=== PATIENT | male | born 1945 | race Caucasian/White ===

== ENCOUNTER 2019-09-24 11:52 | Outpatient (CLI) | payer MEDICARE, BC, SELFPAY ==
[2019-09-24 12:53] LABS: Hematocrit 51.2 % (42.0-52.0); Hemoglobin 16.6 g/dL (14.0-18.0); Mean Corpuscular HGB Conc 32.4 g/dl (32-36); Mean Corpuscular Hemoglobin 29.9 pg (26-34); Mean Corpuscular Volume 92.1 fl (80-100); Platelet Count Result 197 k/mm3 (150-375); Red Blood Count 5.56 M/mm3 (4.6-6.20); Red Cell Distribution Width 13.2 % (11.5-14.5); White Blood Count 7.4 K/mm3 (4.5-10.0)
[2019-09-24 13:02] LABS: Add Urine Microscopic? YES; Appearance Urine Clear (Clear); Bacteria Urine 2+ /hpf; Bilirubin Urine 2+ (Negative); Blood Urine Negative (Negative); Color Urine Amber (Yellow); Glucose Urine UA Negative (Negative); Ketones Urine Negative (Negative); Leukocyte Esterase Ur Negative LEU/UL (NEGATIVE); Mucus Urine Heavy /lpf; Nitrate Urine Negative (Negative); Protein Urine 2+ mg/dL (Negative); Urobilinogen Urine Negative mg/dL (<2.0); WBC Urine 0-3 /hpf (0-3)
[2019-09-24 13:09] LABS: Specific Grav Ur 1.036 (1.001-1.035)
[2019-09-24 13:23] LABS: Alanine Aminotransferase 31 U/L (4-50); Albumin Level 4.4 g/dL (3.5-5.1); Alkaline Phosphatase 83 U/L (38-126); Aspartate Amino Transferase 29 U/L (17-59); Blood Urea Nitrogen 16 mg/dL (9-20); Calcium 9.3 mg/dL (8.4-10.2); Carbon Dioxide 27 mmol/L (22-30); Chloride 102 mmol/L (98-107); Cholesterol 136 mg/dL (0-200); Estimated Glomerular Filt Rate > 60; Glucose 110 mg/dL (75-110); HDL Direct 33 mg/dL; Potassium 3.7 mmol/L (3.4-5.0); Sodium 140 mmol/L (137-145); Triglycerides 147 mg/dL (<150)
[2019-09-24 13:34] LABS: LDL Cholesterol Direct 82 mg/dL
[2019-09-24 13:51] LABS: Prostate Specific Antigen 1.3 ng/mL (< OR = 4.0)
[2019-09-24 14:31] LABS: Vitamin D 25 Hydroxy 22.3 ng/mL
[2019-09-24 14:36] LABS: Hemoglobin A1C 6.3 % (<5.7)
[2019-09-29 08:58] LABS: Testosterone Free 31.7 pg/mL (30.0-135.0); Testosterone Total 258 ng/dL (250-1100)
== END 2019-09-24 11:53 | disposition home or self-care (01) ==
DX: R73.9 Hyperglycemia, unspecified (principal); Z12.5 Encounter for screening for malignant neoplasm of prostate; E29.1 Testicular hypofunction; E55.9 Vitamin D deficiency, unspecified; E78.5 Hyperlipidemia, unspecified
CPT/HCPCS: 36415; 80053; 80061; 81001; 82306; 83036; 84153; 84402; 84403; 84443; 85027; G0103

== ENCOUNTER 2023-05-23 10:02 | Observation (INO) | payer MEDICARE, SELFPAY ==
[2023-05-23] VITALS (33 sets, daily range): BP systolic 125–161; BP diastolic 75–85; PULSE 75–108; RESP 15–24; TEMP 36.7–37.5; O2SAT 88–99; BMI 31.8
--- NOTE | ~2023-05-23 | XR_ITS ---
Clinical Indication: Shortness of breath AP and lateral views of the chest: Comparison: 12/08/2016 Findings: The lungs are clear, without evidence of focal consolidation or pleural effusion. Cardiome diastinal silhouette is within normal limits, with pacemaker device. Bones and soft tissues are unrem arkable. Impression: Clear lungs. Pacemaker device. Reviewed, dictated and finalized at location . Impression: Clear lungs. Pacemaker device.
--- NOTE | ~2023-05-23 | CT_ITS ---
EXAMINATION: CTA chest PE protocol DATE: 05/23/2023 13:06 INDICATION: Shortness of breath and hypoxia TECHNIQUE: Computed tomography angiography (CTA) of the chest was performed with 100 mL Omnipaque-350 intravenous contrast timed to evaluate the pulmonary arteries. Coronal maximum intensity projection 3D-reconstructions were created by the technologist. The dose-length product (DLP) was 1197.73 mGy-cm . Automated exposure control and iterative reconstruction technique were employed. COMPARISON: 12/09/2016 FINDINGS: The pulmonary arteries are well-opacified. No pulmonary embolism is identified. There is mi ld dependent atelectasis of the lungs. The lungs are free of focal airspace opacities. No pleural eff usion or pneumothorax. There is mild right hilar lymphadenopathy which may be reactive. The heart siz e is normal. There are bridging osteophytes at multiple levels in the spine, consistent with diffuse idiopathic skeletal hyperostosis (DISH). Cholelithiasis is noted. There is mild bilateral gynecomasti a. IMPRESSION: 1. No pulmonary embolism or acute cardiopulmonary abnormality. Reviewed, dictated and finalized at location L.
--- NOTE | 2023-05-23 10:26 | ECG_ITS ---
Measurements Intervals [place] Rate: 89 P: 40 [place]: 159 QRS: 10 QRSD: 92 T: 63 QT: 342 QTc: 417 Interpretive Statements SINUS RHYTHM VENTRICULAR PREMATURE COMPLEXES DELAYED PRECORDIAL R/S TRANSITION MINIMAL Q WAWVES- INFERIOR LEADS BORDERLINE ECG NO PREVIOUS ECG AVAILABLE FOR COMPARISON Electronically Signed On 05-23-2023 10:47:27 CDT by Garcia Osborne D.O.
[2023-05-23 10:43] LABS: Basophils Absolute Auto 0.1 K/mm3 (0.0-0.1); Basophils Percent Auto 0.5 % (0.2-1.2); Eosinophils Absolute Auto 0.1 K/mm3 (0-0.3); Eosinophils Percent Auto 0.9 % (0-4.4); Hematocrit 51.2 % (42.0-52.0); Hemoglobin 16.8 g/dL (14.0-18.0); Immature Granulocyte Absolute 0.02 K/mm3 (0.00-0.031); Immature Granulocyte Percent A 0.2 % (0-0.5); Lymphocytes Absolute Auto 0.95 K/mm3 (0.9-3.2); Lymphocytes Percent Auto 10.2 % (18.3-44.2); Mean Corpuscular HGB Conc 32.8 g/dl (32-36); Mean Corpuscular Hemoglobin 30.4 pg (26-34); Mean Corpuscular Volume 92.6 fl (80-100); Mean Platelet Volume 10.5 fl (7.4-10.4); Monocytes Absolute Auto 0.6 K/mm3 (0.1-0.6); Monocytes Percent Auto 6.1 % (2.6-8.5); Neutrophils Absolute Auto 7.6 K/mm3 (1.3-6.7); Neutrophils Percent Auto 82.1 % (45.5-73.1); Platelet Count Result 192 k/mm3 (150-375); Red Blood Count 5.53 M/mm3 (4.6-6.20); Red Cell Distribution Width 13.2 % (11.5-14.5); White Blood Count 9.3 K/mm3 (4.5-10.0)
--- NOTE | 2023-05-23 10:52 | ED.SOB ---
HPI - SOB/Dyspnea General Chief Complaint: Shortness of Breath/Dyspnea <Haley Larsen PA-C - Last Filed: 05/24/23 09:35> Stated Complaint: SOB x 1 week <MANNY Atkinson Last Filed: 05/24/23 09:35> Time Seen by Provider: 05/23/23 10:44 <MANNY Atkinson Last Filed: 05/24/23 09:35> Source: patient <MANNY Atkinson Last Filed: 05/24/23 09:35> Mode of arrival: EMS <MANNY Atkinson Last Filed: 05/24/23 09:35> Limitations: no limitations <MANNY Atkinson Last Filed: 05/24/23 09:35> History of Present Illness HPI Narrative: This is a 78-year-old male that presents to the emergency department for shortness of breath. Worsening over the last couple of days. Reports associated cough and congestion. Noted he was wheezing. He tried taking an old inhaler that he had with little relief. He does not report any known history of asthma or COPD. He is not a smoker. Does report his cough is productive of bhatt sputum. Denies fever, chest pain, or lower extremity edema. <MANNY Atkinson Last Filed: 05/24/23 09:35> Related Data Home Medications: Home Medications Medication Instructions Recorded Confirmed apixaban 5 mg tablet (Eliquis) 5 mg PO BID 05/23/23 05/23/23 atorvastatin 40 mg tablet 40 mg PO HS 05/23/23 05/23/23 carvedilol 6.25 mg tablet 6.25 mg PO BID 05/23/23 05/23/23 <MANNY Atkinson Last Filed: 05/24/23 09:35> Allergies/Adverse Reactions: Allergies Allergy/AdvReac Type Severity Reaction Status Date / Time No Known Allergies Allergy Verified 05/23/23 10:31 <MANNY Atkinson Last Filed: 05/24/23 09:35> Review of Systems Review of Systems: CONSTITUTIONAL: Denies fever ENT: Reports rhinorrhea, congestion CARDIOVASCULAR: Denies chest pain, or edema. RESPIRATORY: Reports cough and dyspnea. <Haley Larsen PA-C - Last Filed: 05/24/23 09:35> All systems reviewed & are unremarkable except as noted in HPI and below <Haley Larsen PA-C - Last Filed: 05/24/23 09:35> PMFSH Past Medical History Medical History: Medical History (Updated 05/23/23 @ 21:58 by Ama Paz PA-C) Arthritis Chronic anticoagulation Crohn's disease No issues for decades. Hyperlipidemia Hypertension Hypothyroidism As a teenager. Kidney stones Migraine headache Obstructive sleep apnea Paroxysmal atrial fibrillation <Haley Larsen PA-C - Last Filed: 05/24/23 09:35> Surgical History Surgical History: Surgical History History of cardiac radiofrequency ablation History of permanent cardiac pacemaker placement History of sinus surgery <Haley Larsen PA-C - Last Filed: 05/24/23 09:35> Family History Family History: Family History Mother Carcinoma of colon <Haley Larsen PA-C - Last Filed: 05/24/23 09:35> Social History Social History: Social History (Updated 05/23/23 @ 15:37 by Ama Paz PA-C) Social History: Surrogate medical decision maker: Darrell Montoya, son. Code status: Full code. Smoking packs per day: 2 Smoking cigarettes per day: 40.0 Smoking status: Former smoker Additional smoking assessment comments: Quit in 1984. Alcohol intake: current Drinks per week: 1 Substance use: former Lack of Transportation: No Lack of Food: Never True Current Housing: I Have Housing Concerned About Future Housing: No Difficulty Paying Gas/Electric Bills: No Difficulty Paying for Meds: No Currently Unemployed: No Education: Decline to Answer Difficulty w/ Childcare or Family Care: No Spiritual care concerns: No <Haley Larsen PA-C - Last Filed: 05/24/23 09:35> Exam Narrative: GENERAL: Well-appearing, well-nourished, and in no acute distress. HEAD: Normocephalic, atraumatic. EYES: EOMI. ENT: Nares clear, no
[2023-05-23 10:57] LABS: Alanine Aminotransferase 33 U/L (6-50); Albumin Level 4.2 g/dL (3.5-5.1); Alkaline Phosphatase 72 U/L (38-126); Anion Gap 4 mmol/L (8-16); Aspartate Amino Transferase 44 U/L (17-59); Bilirubin,Total 2.2 mg/dL (0.2-1.3); Blood Urea Nitrogen 12 mg/dL (9-20); Calcium 8.7 mg/dL (8.4-10.2); Carbon Dioxide 31 mmol/L (22-30); Chloride 98 mmol/L (98-107); Estimated CRCL calculation 86 ml/min; Estimated Glomerular Filt Rate > 60; Glucose 136 mg/dL (65-110); Potassium 4.4 mmol/L (3.4-5.0); Sodium 133 mmol/L (137-145)
[2023-05-23] MEDS: IPRATROPIUM BR 0.02% INH SOLN 0.5 MG/2.5 ML VIAL INHALATION ×2 (11:06→21:21)
[2023-05-23] MEDS: ALBUTEROL SULFATE NEB 2.5 MG/3 ML INH INHALATION ×2 (11:06→21:20)
[2023-05-23 11:22] LABS: Alveolar/Arterial O2 Gradient 178.3 mmHg; Base Excess ABG 0.6 mEq/l (+/-2.0); Carboxyhemoglobin 1.1 % THb (0-2.0); Fractional Inspired Oxygen 40 %; HCO3 ABG 25.2 mEq/l (22.0-26.0); Methemoglobin ABG 0.5 %THb (0-1.5); Oxygen Content ABG 21.9 %vol (16.0-22.0); Oxygen Saturation ABG 91.4 % (95.0-100.0); Oxyhemoglobin 89.2 % THb (90.0-100.0); PCO2 ABG 40.5 mmHg (35.0-45.0); PO2 ABG 60.3 mmHg (80.0-100.0); PO2 FiO2 Ratio Arterial Blood 1.51 %; Reduced Hemoglobin 9.2 %THb (0-5.0); Total Hemoglobin 17.5 g/dL (12.0-18.0); pH ABG 7.412 (7.350-7.450)
[2023-05-23 11:28] LABS: Device NASAL CANNULA; Modified Allen's Test Pass; Site Drawn RIGHT RADIAL
[2023-05-23 12:17] LABS: NT Pro B Type Natriuretic Pept 447 pg/mL (19.9-100)
[2023-05-23 12:39] LABS: Influenza A QL RT-PCR Negative (Negative); Influenza B QL RT-PCR Negative (Negative); SARS-CoV-2 RNA PCR Negative (Negative)
--- NOTE | 2023-05-23 13:04 | PC.NURSE ---
pt in ct for additional studies.
[2023-05-23] MEDS: methylPREDNISolone SOD SUCC 125 MG VIAL IV PUSH (13:57)
--- NOTE | 2023-05-23 14:44 | ADMGEN ---
This patient, Dereje Montoya, was admitted to [facility] Surg Room 315-02. Patient/family oriented to hospital policies and general routines including ID bracelet, bed and alarms, visiting hours, pain management, procedures, bathroom and other care routines, personal items, smoking policy, room service/diet, and visiting hours. Information on how to activate the Rapid Response Team has been discussed. Patient/Family are encouraged to report perceived risks to care and to ask questions if they do not understand what they are told or what they should do.
--- NOTE | 2023-05-23 15:33 | PM.IMHP ---
H&P: HPI History of Present Illness Date/Time: 05/23/23 15:30 Chief Complaint: Shortness of breath. Narrative: This is a pleasant 78-year-old male with history of migraine headaches, atrial fibrillation status post cardiac ablation on chronic anticoagulation, dyslipidemia, remote tobacco use, and sleep apnea who presented to the emergency department via private vehicle from home for evaluation of shortness of breath. The patient provides the following history. He has not been feeling well for approximately 5 days with subjective fever, decreased appetite, mild nausea, sore throat, cough productive of bhatt phlegm, and shortness of breath. He had some mild wheezing and used an old inhaler that he had without much benefit. According to his smart watch and pulse oximeter his heart rate has been pretty persistently in the 90s (baseline 70-72 beats per minute) and his oxygen levels have ranged anywhere from 87% to 92% on room air. He lives alone and has not been around anybody sick for extended periods of time however 1 week ago he was at the down as and other patient was coughing quite a bit while they were in the waiting room. He denies documented fever, chest pain, pleuritic pain, vomiting, and diarrhea. No known history of cardiac or pulmonary disease. He states compliance with his CPAP however has not used it for a couple of nights due to coughing fits. No orthopnea, paroxysmal nocturnal dyspnea, or lower extremity edema. He was afebrile on arrival to the ED. SpO2 was as low as 88% and he was started on 4 L nasal cannula. He tested negative for influenza and COVID. CTA of the chest was negative for PE and acute findings. ProBNP was mildly elevated at 447. In the ED he was given a nebulizer treatment and high 125 mg of Solu-Medrol a bit of improvement in his symptoms. He is being admitted in this setting for close monitoring and pulmonology consultation given hypoxia. Review of Systems Review of Systems: Twelve systems were reviewed and are negative except for as per HPI. [facility] Past Medical History Medical History (Updated 05/23/23 @ 21:58 by Ama Paz PA-C) Arthritis Chronic anticoagulation Crohn's disease No issues for decades. Hyperlipidemia Hypertension Hypothyroidism As a teenager. Kidney stones Migraine headache Obstructive sleep apnea Paroxysmal atrial fibrillation Surgical History Surgical History History of cardiac radiofrequency ablation History of permanent cardiac pacemaker placement History of sinus surgery Family History Family History Mother Carcinoma of colon Social History Social History (Updated 05/23/23 @ 15:37 by Ama Paz PA-C) Social History: Surrogate medical decision maker: Darrell Montoya, son. Code status: Full code. Smoking packs per day: 2 Smoking cigarettes per day: 40.0 Smoking status: Former smoker Additional smoking assessment comments: Quit in 1984. Alcohol intake: current Drinks per week: 1 Substance use: former Lack of Transportation: No Lack of Food: Never True Current Housing: I Have Housing Concerned About Future Housing: No Difficulty Paying Gas/Electric Bills: No Difficulty Paying for Meds: No Currently Unemployed: No Education: Decline to Answer Difficulty w/ Childcare or Family Care: No Spiritual care concerns: No Meds Home Medications and Allergies Home Medications Medication Instructions Recorded Confirmed Type apixaban 5 mg tablet (Eliquis) 5 mg PO BID 05/23/23 05/23/23 History atorvastatin 40 mg tablet 40 mg PO HS 05/23/23 05/23/23 History carvedilol 6.25 mg tablet 6.25 mg PO BID 05/23/23 05/23/23 History Allergies Allergy/AdvReac Type Severity Reaction Status Date / Time No Known Allergies Allergy Verified 05/23/23 10:31 Vital Signs Vital Signs - 24 hr 05/23/23 10:27
[2023-05-23] MEDS: WATER FOR IRRIGATION, STERILE 1,000 ML BOTTLE 1000 ML (17:03)
[2023-05-23] MEDS: ATORVASTATIN 40 MG TABLET PO (20:51)
[2023-05-23] MEDS: APIXABAN 5 MG TABLET PO (20:51)
[2023-05-23] MEDS: carvediloL 6.25 MG TABLET PO (20:52)
[2023-05-23] MEDS: BENZOCAINE/MENTHOL (*BKC) 18 EA LOZENGE 1 LOZENGE PO (21:47)
[2023-05-23 22:32] LABS: Strep Group A RT-PCR NOT DETECTED (Negative)
[2023-05-24] VITALS (9 sets, daily range): BP systolic 120–128; BP diastolic 63–73; PULSE 78–90; RESP 16–20; TEMP 36.4–36.7; O2SAT 93–99
[2023-05-24] MEDS: IPRATROPIUM BR 0.02% INH SOLN 0.5 MG/2.5 ML VIAL INHALATION ×3 (02:18→14:05)
[2023-05-24] MEDS: ALBUTEROL SULFATE NEB 2.5 MG/3 ML INH INHALATION ×3 (02:19→14:05)
--- NOTE | 2023-05-24 08:00 | ECHO_ITS ---
Patient Info Name: Dereje Montoya Age: 78 years : 1945 Gender: Male Ht: 77 in Wt: 265 lbs BSA: 2.58 m2 HR: 70 bpm BP: 153 / 75 mmHg Heart Rhythm: Sinus Rhythm Technical Quality: Fair Exam Date: 05/24/2023 10:48 AM Exam Location: [facility] Pulmonary Exam Room: [facility] Patient Status: Outpatient Admit Date: 05/23/2023 Staff Ordering Physician: Ama Paz PA-C Aircraft Painter: Tosha Baker RDCS Attending Provider: Esteban Doyle MD Referring Physician: Jackson NIELSEN; Exam Type: CA echo doppler w bubble study Study Info Indications - HYPOXIA /AFIB Complete two-dimensional, color flow and Doppler transthoracic echocardiogram is performed with agitated saline. Contrast/Agitated Saline Contrast/Ag. Saline: Agitated Saline Amount: 20.00 ml Administered By: Betty Sunshine Existing IV Access: Yes IV Access Condition: patent with no signs of infiltration Summary 1. Left ventricular chamber dimension is normal. 2. Left ventricular systolic function is normal, estimated at 60-65%. 3. There is mildly increased left ventricular wall thickness. 4. The left ventricular diastolic function is grade I diastolic dysfunction. 5. Right ventricular systolic function is normal. 6. There is trace mitral valve regurgitation. 7. There is trace tricuspid valve regurgitation. Left Ventricle Left ventricular chamber dimension is normal. Left ventricular systolic function is normal, estimated at 60-65%. There is mildly increased left ventricular wall thickness. The left ventricular diastolic function is grade I diastolic dysfunction. Right Ventricle Linear artifact in right ventricle suggestive of catheter(s), pacemaker lead(s), or ICD lead(s). Right ventricular chamber dimension is normal. Right ventricular systolic function is normal. Left Atria Left atrial chamber dimension is normal. Right Atria Linear artifact in the right atrium suggestive of catheter(s), pacemaker lead(s), or ICD lead(s). Right atrial chamber dimension is normal. Atrial Septum Intact interatrial septum visualized by color flow and agitated saline imaging. Aortic Valve The aortic valve is probable trileaflet. There is moderate aortic valve sclerosis. There is no aortic valve stenosis. There is no aortic valve regurgitation. Pulmonic Valve The pulmonic valve is not well visualized. Mitral Valve The mitral valve has thickened leaflets. There is trace mitral valve regurgitation. Tricuspid Valve There is trace tricuspid valve regurgitation. Pericardium/Pleural There is trivial pericardial effusion. Inferior Vena Cava Normal inferior vena cava with >50% collapse upon inspiration consistent with normal right atrial pressure, 3 mmHg. Aorta The aortic root size at the sinus of Valsalva is normal. Left Ventricular Outflow Tract Name Value Normal LVOT 2D LVOT Diameter 2.5 cm LVOT Doppler LVOT Peak Gradient 2 mmHg LVOT Mean Gradient 1 mmHg LVOT VTI 18 cm LVOT VTI/AV VTI Ratio 0.7 LVOT Stroke Volume 93 ml
[2023-05-24] MEDS: APIXABAN 5 MG TABLET PO (08:46)
[2023-05-24] MEDS: carvediloL 6.25 MG TABLET PO (08:46)
[2023-05-24] MEDS: predniSONE 20 MG TABLET 40 MG PO (08:47)
--- NOTE | 2023-05-24 11:00 | PM.DS ---
DS: Admitting Diagnosis Discharge Date May 24, 2023 Admitting Diagnosis Shortness of breath DS: Discharge Diagnosis Discharge Diagnosis (1) Viral respiratory illness: Code(s): J98.8 - Other specified respiratory disorders; B97.89 - Other viral agents as the cause of diseases classified elsewhere Status: Acute (2) Hypoxia: Code(s): R09.02 - Hypoxemia Status: Acute (3) Paroxysmal atrial fibrillation: Code(s): I48.0 - Paroxysmal atrial fibrillation Status: Acute (4) Chronic anticoagulation: Code(s): Z79.01 - termite treater helper (current) use of anticoagulants Status: Acute (5) Hypertension: Code(s): I10 - Essential (primary) hypertension Status: Acute DS: Summary Hospital Course Hospital Course: Patient is 78-year-old gentleman came in with hypoxia. He was evaluated in the ER and workup did not reveal anything substantial. When I saw the patient this morning he was ambulating around his room without any oxygen. He reports he is not having any shortness of breath. Patient asked if he could go home today. I think that is appropriate given the fact that he is feeling much better. I will send him home on a bronchodilator although I am not sure he will need this long-term. Otherwise patient can be discharged. He was to follow-up with a grinder set up operator external and his cardiac doctor and his primary care doctor over in [place]. Time Spent with Patient Time attestation: Total time spent providing and/or coordinating discharge services: Exam Const: Other: Mildly ill-appearing male sitting up in bed in no acute distress. Weight: 120.9 kg. BMI: 31.6. HENMT: Other: Normocephalic, atraumatic. Nares patent bilaterally. Tacky mucous membranes. Oropharynx is erythematous and mildly edematous without exudate. Eyes: Other: Wearing corrective lenses. Pupils are reactive. Extraocular motions intact. Sclerae anicteric. Neck: Other: Supple. No JVD or lymphadenopathy. Resp: Other: Respirations are nonlabored. He speaks in full sentences. Lung sounds are a bit diminished with faint and expiratory wheezes. Cardio: Other: Regular rate rhythm with normal S1-S2. GI: Other: Abdomen is soft, nontender, and nondistended with positive bowel sounds. Skin: Other: Warm and dry. Neuro: Other: Alert. Cranial nerves 2-12 are grossly intact. No gross focal deficits to casual conversation. Extrem: Other: No cyanosis, clubbing, or edema. Peripheral pulses intact. No palpable knots or cords. Psych: Other: Pleasant and cooperative. Appropriate mood and affect. DS: Data Data Completed and Pending Labs on day of discharge: Labs from last 24 hours 05/23/23 05/23/23 05/23/23 21:21 11:56 11:07 Puncture Site Right radial ABG pH 7.412 ABG pCO2 40.5 ABG pO2 60.3 L ABG PO2/FiO2 Ratio 1.51 ABG HCO3 25.2 ABG O2 Saturation 91.4 L ABG O2 Content 21.9 ABG Base Excess 0.6 A-a Gradient 178.3 Oxyhemoglobin 89.2 L Carboxyhemoglobin 1.1 Methemoglobin 0.5 Reduced Hemoglobin 9.2 H Total Hemoglobin 17.5 O2 Delivery Device Nasal cannula O2 Liters/Min Not Reportable FiO2 40 NT-Pro-B Natriuret Pep Influenza A (RT-PCR) Negative Influenza B (RT-PCR) Negative SARS-CoV-2 RNA (RT-PCR) Negative Group A Strep (PCR) Not detected 05/23/23 10:32 Puncture Site ABG pH ABG pCO2 ABG pO2 ABG PO2/FiO2 Ratio ABG HCO3 ABG O2 Saturation ABG O2 Content ABG Base Excess A-a Gradient Oxyhemoglobin Carboxyhemoglobin Methemoglobin Reduced Hemoglobin Total Hemoglobin O2 Delivery Device O2 Liters/Min FiO2 NT-Pro-B Natriuret Pep 447 H Influenza A (RT-PCR) Influenza B (RT-PCR) SARS-CoV-2 RNA (RT-PCR) Group A Strep (PCR) Discharge Plan Discharge Attending physician on discharge: Rito Borja Consulting providers: Haley Larsen
== END 2023-05-24 14:57 | disposition home or self-care (01) ==
LOC: ANHED 10:50 → ANH3MEDSUR 14:53
PROVIDERS: Preventive Medicine Aerospace Medicine; Admitting Provider Internal Medicine; Emergency Provider Physician Assistant; PCP Family Medicine Sports Medicine; Visit Provider Chiropractor
DX: J98.8 Other specified respiratory disorders (principal); R09.02 Hypoxemia; I48.0 Paroxysmal atrial fibrillation; I11.9 Hypertensive heart disease without heart failure; M19.90 Unspecified osteoarthritis, unspecified site; K50.90 Crohn's disease, unspecified, without complications; G43.909 Migraine, unspecified, not intractable, without status migrainosus; G47.33 Obstructive sleep apnea (adult) (pediatric); Z20.822 Contact with and (suspected) exposure to COVID-19; I49.3 Ventricular premature depolarization; E78.5 Hyperlipidemia, unspecified; E03.9 Hypothyroidism, unspecified; Z95.0 Presence of cardiac pacemaker; F10.90 Alcohol use, unspecified, uncomplicated; Z87.891 Personal history of nicotine dependence; Z79.01 Long term (current) use of anticoagulants; Z79.899 Other long term (current) drug therapy; Z98.890 Other specified postprocedural states
CPT/HCPCS: 36415; 36600; 71046; 71275; 80053; 82375; 82805; 83050; 83880; 85025; 87070; 87081; 87205; 87636; 87651; 93005; 93306; 94640; 96374; 96375; 99285; A9270; G0378; J2930; J7512; Q9967